=== PATIENT | male | born 1980 | race Caucasian/White ===

== ENCOUNTER 2019-02-17 11:13 | Outpatient (CLI) | payer OTHER ==
--- NOTE | 2019-02-17 12:26 | RAD ---
XR Hip Rt 2-3 View: 02/17/2019 12:00 AM CLINICAL INDICATION: Pain COMPARISON: None. FINDINGS: Fracture:No fracture. Arthropathy:Slight joint space narrowing of the right hip joint without significant arthropathy. Incidental findings:Pelvic phleboliths. IMPRESSION: 1. No acute osseous abnormality.
--- NOTE | 2019-02-17 12:33 | RAD ---
XR Lumbar Spine 2 Or 3 View: 02/17/2019 12:00 AM CLINICAL INDICATION: Pain COMPARISON: None. FINDINGS: Fracture:No fracture. Arthropathy:Mild multilevel degenerative change throughout the lumbar spine, including disc space deo rowing, endplate osteophytosis and facet osteoarthritis. Incidental findings:Pelvic phleboliths. IMPRESSION: 1. No acute osseous abnormality. 2. Mild multilevel degenerative change throughout the lumbar spine.
--- NOTE | 2019-02-17 12:34 | RAD ---
XR Sacrum and Coccyx STANDARD: 02/17/2019 12:00 AM CLINICAL INDICATION: Pain COMPARISON: None. FINDINGS: No acute fracture of sacrum or coccyx. Mild degenerative change at each sacroiliac joint. IMPRESSION: 1. No acute osseous abnormality.
== END 2019-02-17 11:14 | disposition home or self-care (01) ==
LOC: BICRAD 11:13
PROVIDERS: ATTEND Specialist
DX: M25.551 Pain in right hip (principal); M54.5 Low back pain; M47.896 Other spondylosis, lumbar region
CPT/HCPCS: 72100; 72220